=== PATIENT | male | born 1985 | race Caucasian/White ===

== ENCOUNTER → 2020-11-30 | Day surgery (SDC) | payer OTHER ==
[~2020-11-30] MED LIST: AMOXICILLIN500 MG PO; ATARAX25 MG PO; DAILY MULTIPLE1 EAC1 PO; MOTRIN600 MG PO; PROZAC10 MG PO
[2020-11-30 09:34] LABS: BASOPHIL 0.5 % (0-2); EOSINOPHIL 4.3 % (0-5); HCT 44.1 % (42.0-52.0); HGB 15.4 g/dl (13.2-18.0); LYMPHOCYTE 29.6 % (15-48); MCH 30.7 pg (25.0-31.0); MCHC 34.9 g/dL (32.0-36.0); MPV 9.1 fL (6.0-9.5); NEUTROPHIL 58.3 % (41-80); NRBC 0; PLT 228 K/uL (150-400); RBC 5.01 M/uL (4.70-6.00); RDW 12.3 % (11.5-14.0); WBC 9.2 K/uL (4.0-10.5)
[2020-11-30 09:46] LABS: ALBUMIN 3.8 g/dL (3.4-5.0); BILIRUBIN - TOTAL 0.4 mg/dL (0.2-1.0); BUN/CREAT RATIO (CALC) 20.5 RATIO; CREATININE 0.88 mg/dL (0.67-1.17); GLOBULIN (CALCULATION) 3.3 g/dL; POTASSIUM 4.1 mmol/L (3.5-5.1); TOTAL PROTEIN 7.1 g/dL (6.4-8.2)
== END | disposition home or self-care (01) ==
LOC: FAS 08:46
PROVIDERS: Oral & Maxillofacial Surgery
DX: K02.63 Dental caries on smooth surface penetrating into pulp (principal); F15.10 Other stimulant abuse, uncomplicated; F43.10 Post-traumatic stress disorder, unspecified; F17.210 Nicotine dependence, cigarettes, uncomplicated; Z20.822 Contact with and (suspected) exposure to COVID-19; Z98.890 Other specified postprocedural states
CPT/HCPCS: 36415; 80053; 85025; 93005; J1100; J1885; J2250; J2405; J2704; J7120